=== PATIENT | female | born 1945 | race Two or more races ===

== ENCOUNTER 2018-07-22 08:29 | Outpatient (CLI) | payer OTHER | END 2018-07-22 08:34 | disposition home or self-care (01) | LOC: SONOGRAMA 08:29 | DX: E04.8 Other specified nontoxic goiter (principal) ==

== ENCOUNTER 2019-11-10 09:42 | Outpatient (CLI) | payer OTHER | END 2019-11-10 09:43 | disposition home or self-care (01) | LOC: SONOGRAMA 09:42 | DX: E04.1 Nontoxic single thyroid nodule (principal) ==

== ENCOUNTER 2021-03-21 09:17 | Outpatient (CLI) | payer OTHER | END 2021-03-21 10:12 | disposition home or self-care (01) | LOC: SONOGRAMA 09:17 | PROVIDERS: ATTEND Pathology Anatomic Pathology & Clinical Pathology | DX: E04.8 Other specified nontoxic goiter (principal); D34 Benign neoplasm of thyroid gland; E07.89 Other specified disorders of thyroid ==

== ENCOUNTER 2022-01-09 09:23 | Outpatient (CLI) | payer OTHER | END 2022-01-09 09:26 | disposition home or self-care (01) | LOC: SONOGRAMA 09:23 | PROVIDERS: ATTEND Pathology Anatomic Pathology & Clinical Pathology | DX: E03.8 Other specified hypothyroidism (principal) ==

== ENCOUNTER 2022-10-11 05:30 | Day surgery (SDC) | payer OTHER ==
[~2022-10-11] VITALS: Ht 167.6 cm; Wt 66.2 kg
[~2022-10-11 05:30] MED LIST: ALBUTEROL2.5 MG/3 M IH; BUSPIRONE HCL10 MG PO; FLONASE16 GM; PRAVASTATIN SOD80 MG PO; ZYRTEC10 M3 PO
== END 2022-10-11 12:30 | disposition home or self-care (01) ==
LOC: CIR.AMB 05:30
PROVIDERS: ATTEND Surgery Surgery of the Hand
DX: M72.0 Palmar fascial fibromatosis [Dupuytren] (principal); Z20.822 Contact with and (suspected) exposure to COVID-19; J45.909 Unspecified asthma, uncomplicated